=== PATIENT | female | born 1995 | race Caucasian/White ===

== ENCOUNTER 2020-11-06 05:52 | Emergency (ER) | payer OTHER ==
[2020-11-06] MEDS ORDERED: KETOROLAC 15 MG/ML VIAL IM STA (06:25)
--- NOTE | 2020-11-06 06:28 | ED Physician Documentation ---
History of Present Illness - Stated complaint Stated Complaint: CP - Chief complaint Chief Complaint: Cardiac - History obtained from History obtained from: Patient, Family () - Additonal information Additional information: 24-year-old woman, previously healthy, not on oral contraceptive pill, without family history of cardiac disease at a young age or coagulopathy, presents with chest pain starting last night who left chest, sharp, worse with twisting and deep breathing and pressing on it. Patient works out with her 6 days a week.They are concerned because she had the [employer] vaccine 4 days ago. she has had minimal side effects from it except feeling tired. denies cough, leg swelling, fever, recent travel, surgery or bedrest. Review of Systems Ten Systems: 10 systems reviewed and negative Constitutional: reports: Fatigue. denies: Fever, Chills Cardiac: reports: Chest pain / pressure. denies: Palpitations Respiratory: denies: Dyspnea, Cough GI: denies: Nausea, Vomiting PD PAST MEDICAL HISTORY - Past Medical History Past Medical History: Yes Respiratory: Asthma - Past Surgical History Past Surgical History: Yes HEENT: Other - Present Medications Home Medications: Ambulatory Orders Medication Instructions Recorded Confirmed No Known Home Medications 11/06/20 11/06/20 - Allergies Allergies/Adverse Reactions: Allergies Allergy/AdvReac Type Severity Reaction Status Date / Time No Known Drug Allergies Allergy Verified 11/06/20 06:07 - Social History Does the pt smoke?: No Smoking Status: Never smoker Does the pt drink ETOH?: Yes ETOH Use: Liquor Does the pt have substance abuse?: No - Immunizations Immunizations are current?: Yes PD ED PE NORMAL - Vitals Vital signs reviewed: Yes - General General: Alert and oriented X 3, No acute distress, Well developed/nourished - HEENT HEENT: Atraumatic, PERRL, EOMI - Neck Neck: Supple, no meningeal sign - Cardiac Cardiac: RRR, Other (chest wall pain reproducible with palpation) - Respiratory Respiratory: No respiratory distress, Clear bilaterally - Derm Derm: Normal color, Warm and dry - Extremities Extremities: No deformity - Neuro Neuro: Alert and oriented X 3 - Psych Psych: Normal mood, Normal affect Results - Vitals Vitals: Vital Signs - 24 hr 11/06/20 06:01 Temperature 36.8 C Heart Rate 67 Respiratory 18 Rate Blood Pressure 103/58 L O2 Saturation 100 Oxygen O2 Source Room air - EKG (time done) 0557 Rate: Rate (enter#) (67) Rhythm: NSR Rodney: Normal Intervals: Normal [place] QRS: Normal Ischemia: Normal ST segments Computer interpretation: Agree with computer PD MEDICAL DECISION MAKING - ED course ED course: 24-year-old woman presented with chest wall pain reproducible with palpation. Education given and return precautions given. She will follow up with her primary doctor. Departure - Departure Disposition: 01 Home, Self Care Clinical Impression: Costochondritis, acute Condition: Good Instructions: ED Chest Pain Costochondritis Comments: You were seen in the emergency department for evaluation of left-sided chest pain. Your EKG was normal. I have very low suspicion for a blood clot or a cardiac cause of your chest pain. It is likely this is muscle related andYou will need to rest, apply warm compresses for 20 minutes every hour alternating with cool ice 20 minutes every hour, take ibuprofen 600 mg every 6 hours as needed for pain. Return to the emergency department if you have any new or worsening symptoms or other concerns. Follow-up with your primary doctor.
[2020-11-06 06:50] VITALS: BP 108/71
== END 2020-11-06 06:55 | disposition home or self-care (01) ==
LOC: ED 05:52
DX: M94.0 Chondrocostal junction syndrome [Tietze] (principal)
CPT/HCPCS: 93005; 96372; 99283; 99284

== ENCOUNTER 2022-10-22 00:26 | Emergency (ER) | payer OTHER ==
[2022-10-22 00:34] VITALS: BP 118/60
[2022-10-22] MEDS ORDERED: ONDANSETRON ODT 4 MG TABLET TL STA (01:12)
[2022-10-22] MEDS ORDERED: KETOROLAC 30 MG/ML VIAL IM STA (01:12)
--- NOTE | 2022-10-22 01:12 | ED Physician Documentation ---
History of Present Illness - Stated complaint Stated Complaint: NAUSEA/CHEST PX - Chief complaint Chief Complaint: General - History obtained from History obtained from: Patient, Family () - Additonal information Additional information: 26yF with pmh chronic headaches p/w frontal headache, substernal chest pain, shaking, abdominal pain and nbnb n/v. patient had about 3 servings of wine tonight per spouse. patient endorses chills. unsure if she's been having fever PD PAST MEDICAL HISTORY - Past Medical History Respiratory: Asthma - Past Surgical History Past Surgical History: Yes HEENT: Other - Present Medications Home Medications: Ambulatory Orders Medication Instructions Recorded Confirmed No Known Home Medications 11/06/20 11/06/20 - Allergies Allergies/Adverse Reactions: Allergies Allergy/AdvReac Type Severity Reaction Status Date / Time No Known Drug Allergies Allergy Verified 10/22/22 00:34 - Social History Does the pt smoke?: No Smoking Status: Never smoker Does the pt drink ETOH?: Yes Does the pt have substance abuse?: No - Immunizations Immunizations are current?: Yes PD ED PE NORMAL - Vitals Vital signs reviewed: Yes - General General: Alert and oriented X 3, No acute distress, Well developed/nourished, Other (smells of alcohol) - HEENT HEENT: Atraumatic, PERRL, EOMI - Neck Neck: Supple, no meningeal sign - Cardiac Cardiac: RRR - Respiratory Respiratory: No respiratory distress, Clear bilaterally - Abdomen Abdomen: Non tender, Non distended - Derm Derm: Normal color, Warm and dry - Extremities Extremities: No deformity - Neuro Neuro: Alert and oriented X 3 Results - Vitals Vitals: Vital Signs - 24 hr 10/22/22 00:30 Temperature 36.4 C L Heart Rate 78 Respiratory 16 Rate Blood Pressure 118/60 O2 Saturation 99 Oxygen O2 Source Room air PD Medical Decision Making - ED course ED course: 26yF, previously healthy, p/w body aches, n/v, headache in setting of alcohol use tonight. patient is well appearing with benign vitals and exam. DDX includes mild viral syndrome, alcohol sequelae. cardiac cause for chest pain unlikely given she is young and healthy without prior cardiac history. perc negative therefore pe unlikely. she was provided with odt zofran and IM toradol with improvement in nausea/pain and is tolerating po. return precautions given. f/u with pcp. Departure - Departure Clinical Impression: Chest pain, Alcohol use, Nausea & vomiting, Headache Condition: Stable Instructions: ED Nausea Vomiting Comments: You were seen in the ED for medical evaluation and received oral dissolving zofran, a nausea medicine, as well as a shot of toradol, a pain medicine. Please follow up with your primary care provider and return to the ED if you have new or worsening symptoms or other concerns.
== END 2022-10-22 01:35 | disposition home or self-care (01) ==
LOC: ED 00:26
DX: F10.90 Alcohol use, unspecified, uncomplicated (principal); R11.2 Nausea with vomiting, unspecified; R51.9 Headache, unspecified; R07.9 Chest pain, unspecified
CPT/HCPCS: 96372; 99283; Q0162